=== PATIENT | male | born 2005 | race Caucasian/White ===

== ENCOUNTER 2024-08-12 09:20 | Emergency (ER) | payer OTHER, SELFPAY ==
[2024-08-12 09:24] VITALS: BP 142/86
[2024-08-12 10:09] VITALS: BMI 20.6
[2024-08-12] MEDS: NSS 1000 IV (10:14)
[2024-08-12] MEDS: ZOFRAN 4 MG IV (10:15)
--- NOTE | 2024-08-12 10:15 | ED.GENMED ---
History of Present Illness
General
Chief Complaint: Abdominal Pain
Source: patient
Exam Limitations: none
Time Seen by Provider: 08/12/24 09:44
Nursing documentation reviewed up to this point in time: agreed with
History of Present Illness
History of Present Illness:
The patient is a 19-year-old male presenting with stress-related gastrointestinal symptoms including severe abdominal discomfort and nausea. He reports not having slept for 3 hours and experiencing what he describes as a 'panic attack' after driving
his mother, who was very ill, to the hospital. He frequently vomits, occasionally with small amounts of blood. Approximately one week ago, he experienced diarrhea with some bleeding upon wiping. The stomach discomfort is primarily in the upper
abdomen. He denies lower abdominal pain. The patient has a potential allergy to certain antibiotics or their smells but cannot specify further. He consumes alcohol infrequently, with his last intake about six months ago, and smokes occasionally. He
denies daily marijuana use.
Review of Systems
Review of Systems
Allergies reviewed?: Yes
All Other Systems: ROS reviewed and negative except as documented in HPI and ROS
Phy Exam
Physical Exam
Physical Exam:
GENERAL: Alert , in no apparent distress
EYE: pupils equal and reactive
NECK: Supple, no significant adenopathy.
ENT: o/p clr, mmm.
CARDIAC: Regular rate and rhythm .
LUNGS: Clear breath sounds bilaterally, no acute respiratory distress, no wheezes/rales/rhonchi
ABDOMEN: Reproducible pain to the right upper quadrant and epigastric region otherwise soft abdomen
NEUROLOGICAL: Alert and oriented, no focal neuro deficits
SKIN: Warm and dry, skin intact.
MUSCULOSKELETAL: No edema, well perfused.
PSYCH: Normal and appropriate interaction.
Course
Orders/Labs/Results
Orders:
Orders
08/12/24 09:56
Urinalysis Reflex To Culture Urgent
Date Specimen was Collected: 08/12/24
Time Specimen was Collected: 11:29
0.9% Sodium Chloride 1000 ml [Nss] 1,000 ml IV BOLUS
Dicyclomine HCl [Bentyl] 20 mg IM NOW STA
Famotidine [Pepcid] 20 mg IV NOW STA
Ondansetron Injectable [Zofran] 4 mg IV NOW STA
US Abdomen Complete/Upper Urgent
Comment:
Reason For Exam: RUQ pain
08/12/24 10:14
Complete Blood Count/With Diff Urgent
Comprehensive Metabolic Panel Urgent
Lipase Urgent
08/12/24 11:01
Alprazolam [Xanax] 0.25 mg PO NOW STA
08/12/24 14:22
Diazepam [Valium] 5 mg PO NOW STA
Diphenhydramine [Benadryl] 25 mg IV NOW STA
Abnormal Lab Results
08/12/24
10:14
Absolute Neuts (auto) 7.7 H 10^3/uL
(1.4-6.5)
Neutrophils % 76.0 H %
(42.2-75.2)
Lymphocytes % 17.3 L %
(20.5-51.1)
Chloride 108 H mmol/L
(98-107)
Carbon Dioxide 20 L mmol/L
(22-30)
Glucose 134 H mg/dl
(70-99)
Calcium 10.8 H mg/dl
(8.4-10.2)
Total Bilirubin 1.4 H mg/dl
(0.2-1.3)
Total Protein 9.1 H g/dl
(6.3-8.2)
Albumin 5.8 H g/dl
(3.5-5.0)
08/12/24 10:14
08/12/24 10:14
Vital Signs
Initial and Last Documented VS:
Initial Vital Signs
Temp Pulse Resp BP Pulse Ox
98.1 F 72 16 142/86 98
08/12/24 09:24 08/12/24 09:24 08/12/24 09:24 08/12/24 09:24 08/12/24 09:24
Last Documented Vital Signs
Temp Pulse Resp BP Pulse Ox
98.1 F 62 18 145/91 100
08/12/24 09:24 08/12/24 12:29 08/12/24 12:29 08/12/24 14:31 08/12/24 14:31
MDM/Problems Addressed
MDM/Problems Addressed:
19-year-old male presenting with concerns of upper abdominal pain nausea vomiting and some degree of diarrhea throughout the morning today. Patient on arrival with normal vital signs does have reproducible discomfort of the right upper quadrant and
epigastric region on exam otherwise soft abdomen. Plan for ultrasound labs for further assessment. Otherwise patient is described vomitus with blood seems most consistent with likely merrily Greco tears concerning very small volume. Patient not
on blood thinners. Patient with improving symptoms after medications no signs of emergent pathology on workup ultrasound normal patient no distress here stable for discharge. Return precautions given.
*Pulse Oximetry
SaO2: 98
Oxygen Mode of Delivery: Room air
*Critical Care Note
Total Time (30-74mins, 75-104mins- exclusive of procedures): Not Applicable
ED Attending Note
-
Portions of this chart may have been created with voice recognition software.� Occasional wrong word or��sound alike� substitutions may have occurred due to the inherent limitations of voice recognition software.
Discharge Plan
Departure
Patient Disposition: Home (Routine Discharge)
Date of Disposition: 08/12/24
Time of Disposition: 14:43
Patient with high blood pressure during this ER visit?: No
Condition: Good
Covid-19: Not Applicable
Discharge Problem:
Abdominal pain
Instructions: Abdominal Pain
Referrals:
Candace Jackson CRNP [Family Provider, General]
Activity Restrictions/Additional Instructions:
You came to the emergency department today with concerns of abdominal pain and additional symptoms. Here you have a reassuring assessment. Please follow closely for further management as an outpatient. Return for any worsening, new or concerning
symptoms.
Interventions
Interventions:
*Risk Screen - Suicide Last Done: 08/12/24 10:30
*General Assessment Last Done: 08/12/24 10:30
*Neglect/Abuse Screening Last Done: 08/12/24 10:30
*ED- Fall Risk Assessment Last Done: 08/12/24 10:30
*ED COVID-19 Vaccine History Last Done: 08/12/24 10:30
UB-Iqmtzf-Xqpsbvgyit Assessment Last Done: 08/12/24 10:31
Discharge Date and Time
Print Language: NIUEAN
[2024-08-12] MEDS: BENTYL 20 MG IM (10:17)
[2024-08-12] MEDS: PEPCID 20 MG IV (10:17)
[2024-08-12 10:36] LABS: % Basophils 0.7 % (0-2); % Eosinophils 0.1 % (0-6); % Immature Granulocytes 0.2 % (0-0.5); % Lymphocytes 17.3 % (20.5-51.1); % Monocytes 5.7 % (1.7-9.3); Absolute Basophils 0.1 10^3/uL (0-0.2); Absolute Lymphocytes 1.8 10^3/uL (1.2-3.4); Absolute Monocytes 0.6 10^3/uL (0.1-0.6); Absolute Neutrophils 7.7 10^3/uL (1.4-6.5); Hemoglobin 15.2 g/dL (13.0-18.0); Mean Corp Hgb Conc. 35.3 g/dL (33.0-37.0); Mean Corpuscular Hgb 30.3 pg (27.0-31.0); Mean Corpuscular Volume 85.7 fL (80.0-94.0); Nucleated Red Blood Cells % 0 % (-); Platelet Count 271 10^3/uL (130-400); Red Blood Cell Count 5.02 10^6/uL (4.70-6.10); Red Cell Dist. Width 12.1 % (11.5-14.5); White Blood Cell Count 10.2 10^3/uL (4.8-10.8)
[2024-08-12 10:56] LABS: ALT (SGPT) 23 U/L (0-50); AST (SGOT) 31 U/L (17-59); Albumin 5.8 g/dl (3.5-5.0); Alkaline Phosphatase 81 U/L (38-126); Blood Urea Nitrogen 12 mg/dl (9-20); Calcium 10.8 mg/dl (8.4-10.2); Carbon Dioxide 20 mmol/L (22-30); Chloride 108 mmol/L (98-107); Estimated Creatinine Clearance 120 ml/min; Glucose 134 mg/dl (70-99); Lipase 108 U/L (23-300); Sodium 145 mmol/L (135-145); Total Bilirubin 1.4 mg/dl (0.2-1.3); Total Protein 9.1 g/dl (6.3-8.2); eGFR > 60.00
[2024-08-12 11:00] VITALS: BP 122/102
[2024-08-12] MEDS: XANAX 0.25 MG PO (11:04)
[2024-08-12 12:15] VITALS: BP 133/81
[2024-08-12] MEDS: BENADRYL 25 MG IV (14:28)
[2024-08-12] MEDS: VALIUM 5 MG PO (14:28)
[2024-08-12 14:31] VITALS: BP 145/91
== END 2024-08-12 14:53 | disposition home or self-care (01) ==
LOC: EMR 09:20
PROVIDERS: Physician Assistant; EMERGENCY PHYSICIAN Emergency Medicine; FAMILY PHYSICIAN Nurse Practitioner
DX: R10.10 Upper abdominal pain, unspecified (principal); R11.2 Nausea with vomiting, unspecified; Z87.891 Personal history of nicotine dependence
CPT/HCPCS: 99284; 96374; 96375; 96372; 96361; 76700; 80053; 83690; 85025

== ENCOUNTER 2024-09-24 08:37 | Emergency (ER) | payer OTHER, SELFPAY ==
[2024-09-24 08:40] VITALS: BP 117/84
--- NOTE | 2024-09-24 09:44 | ED.GENMED ---
History of Present Illness
General
Chief Complaint: Anxiety
Source: patient
Exam Limitations: none
Time Seen by Provider: 09/24/24 08:59
Nursing documentation reviewed up to this point in time: agreed with
History of Present Illness
History of Present Illness:
19-year-old male from [facility] presents with anxiety states he gets nausea when he gets anxious there is vomiting in his hometown yesterday where his family is took some Zofran with some relief he smokes vapes occasionally uses cannabis which she
states helps his symptoms, drinks occasionally no other drugs, not currently on therapy
Past History
Past History
ED Past Medical History: Psychiatric
Social History
Tobacco: Smoker
Alcohol: Occasional
Drug: Marijuana
Personal: Single
Living: alone
Employment: Not employed
Review of Systems
Review of Systems
All Other Systems: Not applicable
ABD/GI: Reports abdominal pain, nausea and vomiting
Psychiatric: Reports anxiety; Denies depression, suicidal or hallucinations
Phy Exam
Physical Exam
Physical Exam:
Physical Exam
General: no apparent distress, not acutely ill
Neck: No jaundice
Heart: s1/s2 regular rate and rhythm, no murmur. equal radial pulses.
Lungs: no acute respiratory distress.
Abdomen: Nontender
Neuro: alert and oriented. no focal neurological deficits
Skin: no rash
Psychiatric: Cooperative calm
Extremities: no edema.
Course
Orders/Labs/Results
Orders:
Orders
09/24/24 09:36
Crisis Consult Routine
Reason for Consult: anxiety
09/24/24 09:55
Lorazepam [Ativan] 0.5 mg PO NOW STA
Vital Signs
Initial and Last Documented VS:
Initial Vital Signs
Temp Pulse Resp BP Pulse Ox
98.1 F 83 16 117/84 99
09/24/24 08:40 09/24/24 08:40 09/24/24 08:40 09/24/24 08:40 09/24/24 08:40
Last Documented Vital Signs
Temp Pulse Resp BP Pulse Ox
98.1 F 83 16 117/84 99
09/24/24 08:40 09/24/24 08:40 09/24/24 08:40 09/24/24 08:40 09/24/24 09:45
MDM/Problems Addressed
Differential Diagnosis Includes:
Anxiety stress cannabis use
MDM/Problems Addressed:
Anxiety stress
*Pulse Oximetry
SaO2: 99
Oxygen Mode of Delivery: Room air
Patient hypoxic: no
*Critical Care Note
Total Time (30-74mins, 75-104mins- exclusive of procedures): Not Applicable
Update Note
Update Note:
Patient appears calm here will ask crisis to evaluate him and get him some available outpatient resources
11 AM seen by crisis outpatient resources provided
ED Attending Note
-
Portions of this chart may have been created with voice recognition software.� Occasional wrong word or��sound alike� substitutions may have occurred due to the inherent limitations of voice recognition software.
Discharge Plan
Departure
Patient Disposition: Home (Routine Discharge)
Date of Disposition: 09/24/24
Time of Disposition: 11:04
Patient with high blood pressure during this ER visit?: No
Condition: Good
Discharge Problem:
Anxiety
Instructions: Anxiety, Adult (DC)
Referrals:
Candace Jackson CRNP [Family Provider, General] - Next open appointment
Activity Restrictions/Additional Instructions:
Follow-up with your primary care provider with the resources provided to you by Carlos Vinson
Interventions
Interventions:
*Risk Screen - Suicide Last Done: 09/24/24 08:46
ED-Psychological Assessment Last Done: 09/24/24 10:11
Discharge Date and Time
Print Language: OCCITAN
[2024-09-24] MEDS: ATIVAN 0.5 MG PO (10:11)
[2024-09-24 11:20] VITALS: BP 114/86
== END 2024-09-24 11:25 | disposition home or self-care (01) ==
LOC: EMR 08:37
PROVIDERS: EMERGENCY PHYSICIAN Emergency Medicine; FAMILY PHYSICIAN Nurse Practitioner
DX: F41.9 Anxiety disorder, unspecified (principal); F17.200 Nicotine dependence, unspecified, uncomplicated; F12.90 Cannabis use, unspecified, uncomplicated
CPT/HCPCS: 99283

== ENCOUNTER 2024-09-25 08:02 | Emergency (ER) | payer OTHER, SELFPAY ==
[2024-09-25 08:17] VITALS: BP 137/78
--- NOTE | 2024-09-25 09:12 | ED.GENMED ---
History of Present Illness
General
Chief Complaint: Anxiety
Source: patient and family (mother)
Exam Limitations: none
Time Seen by Provider: 09/25/24 08:37
Nursing documentation reviewed up to this point in time: agreed with
History of Present Illness
History of Present Illness:
The patient is a 19-year-old male who presents with persistent anxiety and abdominal pain, inability to sleep, for past three days. He reports that the anxiety has been constant and unrelenting, with episodes of waking up anxious. The patient
mentions experiencing panic attacks, with symptoms including tension and difficulty breathing, similar to being in a constant anxious state. He attributes some of his anxiety to concerns about his family in [facility] amidst the ongoing war, though he
notes that his family currently remains safe and healthy. Additionally, the patient reports a recent history of waking up early in the morning, unable to return to sleep and feeling a sense of dread and anxiousness throughout the day. He expresses
feeling physically and mentally exhausted, with associated poor appetite and disrupted sleep patterns. The patient has not been eating well due to the anxiety and notes a continuous sensation of tension in his body. He denies any suicidal ideation.
He was here yesterday for similar symptoms. where he was given Lorazepam and Crisis evaluation. Given info for out pt follow up at [facility].
He is requesting something to help him sleep, something now like he got yesterday
He is currently unemployed, living with his mother, brother, and a friend from [facility] who is visiting. The patient has not seen his family doctor in several months.
Past History
Past History
ED Past Medical History: Psychiatric (anxiety)
Social History
Tobacco: Smoker
Alcohol: Occasional
Drug: Marijuana
Personal: Single
Living: alone
Employment: Not employed
Review of Systems
Review of Systems
Allergies reviewed?: Yes
All Other Systems: ROS reviewed and negative except as documented in HPI and ROS
ABD/GI: Reports abdominal pain (intermittent)
Psychiatric: Reports anxiety; Denies suicidal
Phy Exam
Physical Exam
Physical Exam:
GENERAL: No acute distress. A&Ox3.
CONSTITUTIONAL: Afebrile.
EYES: clear, conjunctivae normal
ENMT: moist mucus membranes
RESPIRATORY: Regular respirations, nonlabored, lungs clear.
CARDIOVASCULAR: Regular rate and rhythm, no murmurs, no rubs.
GI: Soft, nontender, normal BS
MUSCULOSKELETAL: Moves with ease. Well perfused.
SKIN: Warm, dry, pink
PSYCH:Anxious, talking non stop,. Well kept, interactive and appropriate
NEUROLOGIC: Awake, alert and oriented. No focal neurological deficits
Course
Vital Signs
Initial and Last Documented VS:
Initial Vital Signs
Temp Pulse Resp BP Pulse Ox
98.4 F 93 18 137/78 99
09/25/24 08:17 09/25/24 08:17 09/25/24 08:17 09/25/24 08:17 09/25/24 08:17
Last Documented Vital Signs
Temp Pulse Resp BP Pulse Ox
98.4 F 93 18 137/78 99
09/25/24 08:17 09/25/24 08:17 09/25/24 08:17 09/25/24 08:17 09/25/24 09:12
MDM/Problems Addressed
MDM/Problems Addressed:
The patient is a 19-year-old male who presents with persistent anxiety and abdominal pain, inability to sleep, for past three days. He reports that the anxiety has been constant and unrelenting, with episodes of waking up anxious. The patient
mentions experiencing panic attacks, with symptoms including tension and difficulty breathing, similar to being in a constant anxious state. He attributes some of his anxiety to concerns about his family in [place] amidst the ongoing war, though he
notes that his family currently remains safe and healthy. Additionally, the patient reports a recent history of waking up early in the morning, unable to return to sleep and feeling a sense of dread and anxiousness throughout the day. He expresses
feeling physically and mentally exhausted, with associated poor appetite and disrupted sleep patterns. The patient has not been eating well due to the anxiety and notes a continuous sensation of tension in his body. He denies any suicidal ideation.
He was here yesterday for similar symptoms. where he was given Lorazepam and Crisis evaluation. Given info for out pt follow up at [facility].
He is requesting something to help him sleep, something now like he got yesterday
He is currently unemployed, living with his mother, brother, and a friend from [facility] who is visiting. The patient has not seen his family doctor in several months.
Discussed with patient the need for psychiatric therapy for his anxiety. Case discussed with Dr. Hale who saw him yesterday and it was decided to not give Ativan again today. Rather start him on an SSRI and have him follow-up with his PCP.
Patient states he wants to speak with his mother before making a decision
Abdomen benign, do not see the need for further workup
Mother arrived, patient and mother are comfortable starting SSRI.
Rx for Zoloft 10 mg daily given.
Patient ambulated out with his mother, calm and appreciative of the care
*Pulse Oximetry
SaO2: 99
Oxygen Mode of Delivery: Room air
Patient hypoxic: not evaluated
*Critical Care Note
Total Time (30-74mins, 75-104mins- exclusive of procedures): Not Applicable
ED Attending Note
-
Portions of this chart may have been created with voice recognition software.� Occasional wrong word or��sound alike� substitutions may have occurred due to the inherent limitations of voice recognition software.
Discharge Plan
Departure
Patient Disposition: Home (Routine Discharge)
Date of Disposition: 09/25/24
Time of Disposition: 09:36
Patient with high blood pressure during this ER visit?: No
Condition: Fair
Discharge Problem:
Anxiety
Instructions: Insomnia, Anxiety, Adult (DC)
Prescriptions:
New
escitalopram oxalate [Lexapro] 10 mg tablet
10 mg PO DAILY Qty: 30 0RF
Referrals:
Candace Jackson CRNP [Family Provider, General] - Call in 1-3 days for appt
Activity Restrictions/Additional Instructions:
As we discussed, I sent a prescription for Lexapro to your pharmacy. Start with 10 mg daily, make an appointment to see your family doctor, after 4 weeks if needed, it can be increased to 20 mg daily.
Contact the therapist that crisis referred you to so you can get some psychological therapy for your anxiety.
You may try melatonin and see if it helps you sleep better
You may also try Benadryl 50 mg at bedtime
Interventions
Interventions:
*Risk Screen - Suicide Last Done: 09/25/24 08:17
*General Assessment Last Done: 09/25/24 08:17
*Neglect/Abuse Screening Last Done: 09/25/24 08:17
Discharge Date and Time
Print Language: GREENLANDIC
== END 2024-09-25 10:00 | disposition home or self-care (01) ==
LOC: EMR 08:02
PROVIDERS: EMERGENCY PHYSICIAN Emergency Medicine; FAMILY PHYSICIAN Nurse Practitioner
DX: F41.9 Anxiety disorder, unspecified (principal); G47.00 Insomnia, unspecified; F17.200 Nicotine dependence, unspecified, uncomplicated; Z79.899 Other long term (current) drug therapy
CPT/HCPCS: 99282